=== PATIENT | female | born 1985 | race Caucasian/White ===

== ENCOUNTER 2016-10-01 14:21 | Inpatient (IN) | payer OTHER ==
[2016-10-01] MEDS ORDERED: DEXTROSE 5%-LACTATED RINGERS 1,000 ML IV PRN (14:26)
[2016-10-01] MEDS ORDERED: OXYTOCIN/DEXTROSE 5%-WATER 30 UNITS/500 ML BAG IV ONE ×2 (14:26→21:21)
[2016-10-01] MEDS ORDERED: RINGERS SOLUTION,LACTATED 1,000 ML IV ONE (14:26)
[2016-10-01] MEDS ORDERED: LIDOCAINE HCL 50 ML VIAL PERI PRN (14:26)
[2016-10-01] MEDS ORDERED: RINGERS SOLUTION,LACTATED 1,000 ML IV PRN (14:26)
[2016-10-01] MEDS ORDERED: ACETAMINOPHEN 500 MG TABLET PO PRN (19:19)
--- NOTE | 2016-10-01 19:45 | PN ---
Progess Note - Interim Narrative: 10/01/16 19:42 Subjective-patient started getting very uncomfortable, complains of a headache Objective- Stable vital signs SVE- 5/80/-3, clear fluid noted on Chux FHTs- 120s, moderate variability, positive accelerations, no decelerations Nankin- every 2 minutes Assessment and plan- Labor-augmentation with Pitocin GBS status-negative Declines analgesia at this time but desires Tylenol for headache Continue current plan of care.
[2016-10-01] MEDS ORDERED: ONDANSETRON HCL/PF 2 MG/ML VIAL IV PRN (20:29)
[2016-10-01] MEDS ORDERED: NALOXONE HCL 1 MG/1 ML SYRG IV PRN (20:29)
[2016-10-01] MEDS ORDERED: fentaNYL CITRATE/PF 50 MCG/ML AMPUL IT SCH (20:45)
[2016-10-01] MEDS ORDERED: oxyCODONE HCL/ACETAMINOPHEN 1 TAB TABLET PO PRN ×2 (21:21)
[2016-10-01] MEDS ORDERED: BENZOCAINE/MENTHOL 81 SPRAY CAN TP PRN (21:21)
[2016-10-01] MEDS ORDERED: GLYCERIN/WITCH HAZEL LEAF 40 APPL BOX TP PRN (21:21)
[2016-10-01] MEDS ORDERED: SENNOSIDES 8.6 MG TABLET PO PRN (21:21)
[2016-10-01] MEDS ORDERED: BISACODYL 10 MG SUPP.RECT RC PRN (21:21)
[2016-10-01] MEDS ORDERED: HYDROCORTISONE 30 APPL TUBE TP PRN (21:21)
--- NOTE | 2016-10-01 21:21 | OR ---
Operative Report - Dictated Report Narrative: Spontaneous vaginal delivery of viable male at 2053 on 10/01/2016 with Apgars 9 and 9, weighing 3161 g in DAILY position. Tight nuchal cord with true knot 1. Cord clamping delayed approximately 1 minute Placenta delivered complete, intact, with three vessel cord Estimated blood loss: less than 50 ml Lacerations: None History for MU Definition: * The number of deliveries resulting in a live the patient experienced prior to current hospitalization * The previous delivery of live twins or any live multiple gestation is considered one live event. *If primagravida or nulliparous is documented select zero for the number of previous live births. Live Events: 3
[2016-10-01] MEDS: IBUPROFEN 800 MG TABLET PO PRN (21:49)
[2016-10-02] MEDS: IBUPROFEN 800 MG TABLET PO PRN ×3 (04:33→23:09)
[2016-10-02] MEDS: DOCUSATE SODIUM 100 MG CAPSULE PO SCH ×2 (08:46→21:54)
[2016-10-02] MEDS: PRENATAL VIT#96/FERROUS FUM/FA 1 TAB TABLET PO SCH (08:46)
[2016-10-02] MEDS ORDERED: POLYETHYLENE GLYCOL 3350 119 GM BTL PO SCH (09:00)
--- NOTE | 2016-10-02 09:11 | PN ---
Subjective - Date and Time Seen Date: 10/02/16 Time: 09:10 Objective - Vitals Vitals: Last Vital Signs Temp 36.6 C 10/02/16 00:15 Pulse 70 10/02/16 00:15 Resp 16 10/02/16 00:15 BP 107/67 10/02/16 00:15 Pulse Ox 99 10/02/16 00:15 Patient denies complaints. Lochia wnl Abdomen - soft, nontender Uterus - firm, at umbilicus - 1 No calf tenderness Impression: day #1 - s/p spontaneous vaginal delivery. Plan: Continue routine care
[2016-10-02] MEDS ORDERED: RHO(D) IMMUNE GLOBULIN 300 MCG DISP.SYRIN IM ONE (14:45)
--- NOTE | 2016-10-03 08:58 | PN ---
Subjective - Date and Time Seen Date: 10/03/16 Time: 08:57 Objective - Vitals Vitals: Last Vital Signs Temp 36.7 C 10/03/16 02:28 Pulse 72 10/03/16 02:28 Resp 16 10/03/16 02:28 BP 116/66 10/03/16 02:28 Pulse Ox 96 10/03/16 02:28 Patient denies complaints. Lochia wnl Abdomen - soft, nontender Uterus - firm, at umbilicus - 2 No calf tenderness Impression: day #2 - s/p spontaneous vaginal delivery. Plan: Routine discharge instructions
[2016-10-03] MEDS: DOCUSATE SODIUM 100 MG CAPSULE PO SCH (11:03)
[2016-10-03] MEDS: PRENATAL VIT#96/FERROUS FUM/FA 1 TAB TABLET PO SCH (11:04)
[2016-10-03 12:38] VITALS: BP 112/71
== END 2016-10-03 11:40 | disposition home or self-care (01) | DRG 775 ==
LOC: OB 14:21 → MS 23:41
PROVIDERS: ADMIT Obstetrics & Gynecology Gynecologic Oncology; ATTEND Obstetrics & Gynecology
PROC: 10E0XZZ Delivery of Products of Conception, External Approach (ICD-10-PCS; principal; 2016-10-01)
PROC: 4A1HXCZ Monitoring of Products of Conception, Cardiac Rate, External Approach (ICD-10-PCS; 2016-10-01)
DX: O69.2XX0 Labor and delivery complicated by other cord entanglement, with compression, not applicable or unspecified (principal); O42.02 Full-term premature rupture of membranes, onset of labor within 24 hours of rupture; Z3A.39 39 weeks gestation of pregnancy; Z37.0 Single live birth
CPT/HCPCS: 59025; 85460; J2790